=== PATIENT | female | born 1980 | race Caucasian/White ===

== ENCOUNTER → 2016-10-13 | Outpatient (CLI) | payer BC ==
--- NOTE | 2016-10-13 16:49 | DX ---
Chest, PA and Lateral History: Cough, immunosuppression due to rheumatoid arthritis Findings: Lungs are clear, without infiltrate (alveolar or interstitial) or consolidation. Heart size is normal. There is no adenopathy, cavitary lesion or mass . There is no pleural effusion. Bones are unremarkable for age. Impression: Normal. Results called to Dr. Tinoco as requested.
== END ==
LOC: BMCIMAGING 16:28
PROVIDERS: ATTEND Family Medicine
DX: R07.81 Pleurodynia (principal); R05 Cough

== ENCOUNTER → 2016-12-17 | Outpatient (CLI) | payer BC | LOC: FIMAGING 11:40 | PROVIDERS: ATTEND Obstetrics & Gynecology | DX: Z31.69 Encounter for other general counseling and advice on procreation (principal); M06.9 Rheumatoid arthritis, unspecified; E03.9 Hypothyroidism, unspecified ==

== ENCOUNTER 2017-10-01 05:27 | Inpatient (IN) | payer BC ==
--- NOTE | 2017-09-19 22:30 | GHP ---
[f rep st] PREOP HISTORY AND PHYSICAL DATE OF ADMISSION: 10/01/2017 IDENTIFYING DATA: The patient's surgery is planned for October 01, 2017 on the Obstetrics Service. PREOPERATIVE HISTORY: The patient is a 37-year-old, G3, P2, at 39 weeks gestation, who is presenting for a scheduled repeat section. She has a due date of 10/07/2017. The patient has had 2 prior sections, the 1st for breech, preeclampsia, and the 2nd was an elective repeat. The patient' s current has been symptomatically hard due to worsening hip discomfort, which has possibly been from worsening rheumatoid arthritis versus -related changes. The patient has been on Cimzia throughout the . The patient is also with a history of depression and anxiety and became more symptomatic during the with the worries about her chronic pain. She was initiated on Zoloft at 26 weeks gestation and has increased her dose through the , but feels this is managing her anxiety. The patient also has Karoline disease and has had some increase in her thyroid replacement in the . Upon presentation, the patient is having good movement, bag of water intact, no bleeding. The patient has been thoroughly counseled about the risks and benefits of a repeat and the consent form was signed. The patient declines tubal ligation or removal. CARE: The patient has been followed by [facility] since 8 weeks gestation. The patient had 1st trimester nausea that was controlled with Zoloft. She had discontinued her Wellbutrin in the month preceding conception and initially did well up to mid-. The patient initiated Zoloft at 26 weeks and has increased her dose twice, but feels this is keeping her in good control. The patient was found to have alpha-thalassemia trait, but her tested negative. The patient has been following up with her pipe finisher through and has gradually tried to spread out her Cimzia injections to reduce the potential for affect on immunity. The patient has been having progressive hip discomfort and has been working with physical therapy, as well as chiropractics, through the . The patient has occasionally used Flexeril for travel. The patient did have preeclampsia with her first, felt related to steroid use in the 1st trimester, and did not have trouble with her second during the . However, had a headache and slightly elevated blood pressures and was sent home on labetalol. This her blood pressures have been normal and baseline PIH testing was all negative. LABS: Maternal blood type shows O-positive with negative antibody screen. RPR nonreactive. Rubella non immune. Hepatitis B surface antigen negative. HIV negative. The standard genetics panel all negative except for possibly alpha-thalassemia trait. Baseline PIH labs normal with 24-hour protein 281. Initial TSH 1.9; however, check in July revealed 4.29 with improvement on August 19 of TSH 0.8. Urinalysis and culture negative. Pap smear negative. Gonorrhea and chlamydia negative. Verifi testing negative. GBS culture was positive. The patient's hematocrit showed anemia at the beginning of ; improved to 37% in mid-. PAST MEDICAL HISTORY: Rheumatoid arthritis, currently on Cimzia, and followed with a pipe finisher. History of hypothyroidism with Karloine disease. History of migraines in college. Depression and anxiety disorder ( discontinuing her Zoloft 1 month prior to ). PAST SURGICAL HISTORY: Odontectomy, sections x2 in 2011 and 2013. PAST OBSTETRIC HISTORY: In January 2012, a male delivered by section at 37 weeks at 6 pounds 4 ounces. The patient delivered early due to preeclampsia and was breech, dictating the delivery. Questionable chronic hypertension. In March 2014, another male at 7 pounds 5 ounces, delivered at 39 weeks by scheduled repeat electively. ALLERGIES: The patient has no known drug allergies. CURRENT MEDICATIONS: Cimzia injections q.2-3 weeks, levothyroxine at 150 mcg daily, Zoloft 75 mg daily. SOCIAL HISTORY: The patient is , lives with her and 2 sons. The patient is a nonsmoker. No alcohol or drug use. PHYSICAL EXAM: GENERAL: At the time of preop, the patient is a well-developed , well-nourished, overweight white female in discomfort with her hip pain, but no pains. VITAL SIGNS: The patient is clinically afebrile. Blood pressure 100/58. Urinalysis negative for protein and glucose. Weight 222 pounds. LUNGS: Clear to auscultation bilaterally. CARDIOVASCULAR: Regular rate and rhythm. ABDOMEN: Shows a fundal height of 36 cm. Normal heart tones in the 150s. PELVIS: Exam is deferred. EXTREMITIES: Mild peripheral edema. ASSESSMENT: Intrauterine at 39 weeks gestation for repeat section. Prior x2. Rheumatoid arthritis on Cimzia. Karoline hypothyroidism. History of anxiety, on Zoloft 75 mg. Rubella nonimmune. GBS positive. PLAN: Repeat planned for 10/01/2017. Patient declines tubal ligation. The patient will receive preoperative antibiotics and will have SCDs on for the surgery. /[id number]/MODL MTDD
[2017-10-01] MEDS ORDERED: CITRIC ACID/SODIUM CITRATE 30 ML UDCUP PO ONE (05:55)
[2017-10-01] MEDS ORDERED: ceFAZolin 2 GM/DEXTROSE 100 ML IV ONE (05:55)
[2017-10-01] MEDS ORDERED: LR 1,000 ML IV SCH (05:55)
[2017-10-01] MEDS ORDERED: LR 500 ML IV ONE (05:55)
[2017-10-01] MEDS ORDERED: ceFAZolin 2 GM/SWFI 2 GM/20 ML SYR IVP ONE (06:15)
[2017-10-01 06:17] LABS: PLATELET COUNT 224 10^3/uL (150-400)
[2017-10-01] MEDS ORDERED: AMMONIA AROMATIC 1 EACH AMP IH ONE (06:36)
[2017-10-01] MEDS ORDERED: OXYTOCIN 10 UNIT/ML VIAL ONE (06:37)
[2017-10-01] MEDS ORDERED: MISOPROSTOL 200 MCG TAB ONE (06:37)
--- NOTE | 2017-10-01 07:35 | PDANEPAE ---
ANE History of Present Illness 37 yo for repeat C/S ANE Past Medical History - Pulmonary History Hx Sleep Apnea: No Sleep Apnea Screening Result - Last Documented: Negative - Endocrine History Hx Diabetes: No - Other Health History Other Health History: RA, [place]imotos Thyroiditis ANE Review of Systems Review of systems is: negative Review of Systems: ANE Patient History - Allergies Allergies/Adverse Reactions: No Known Allergies Allergy (Verified 02/05/12 11:41) - Home Medications Home medications: home medication list seen and reviewed Home Medications: 1 tab PO DAILY 04/03/14 [Last Taken 04/02/14] Synthroid 150 mcg (RX) 150 mcg PO DAILY 04/03/14 [Last Taken 04/02/14] Vit D3/Folic Acid/B2/B6/B12 1 tab PO DAILY 04/03/14 [Last Taken 04/02/14] - NPO status NPO Status: no food or drink >8 hours NPO Since - Liquids (Date): 09/30/17 NPO Since - Liquids (Time): 20:00 NPO Since - Solids (Date): 09/30/17 NPO Since - Solids (Time): 20:00 - Anes Hx Anes Hx: no prior problems - Smoking Hx Smoking Status: Never smoked ANE Labs/Vital Signs - Labs Result Diagrams: 10/01/17 05:56 10/01/17 07:17 - Vital Signs Blood Pressure: 143/99 Heart Rate: 73 Respiratory Rate: 18 O2 Sat (%): 95 Height: 182.88 cm Weight: 99.79 kg ANE Physical Exam - Airway Mallampati Score: Class 1 Mouth exam: normal dental/mouth exam - Pulmonary Pulmonary: no respiratory distress, clear to auscultation - Cardiovascular Cardiovascular: regular rate and rhythym - ASA Status ASA Status: II ANE Anesthesia Plan Anesthesia Plan: spinal
[2017-10-01] MEDS ORDERED: morphINE PF 5 MG/10 ML INJ ONE (07:38)
--- NOTE | 2017-10-01 07:40 | PDHPUP ---
History & Physical Update H&P update statement: This history and physical update is based on an assessment of the patient which was completed after admission or registration (within 24 hours), but prior to the surgery/procedure. unchanged - pt anxious and b/p elevated, mild HAs this week - usually in evenings, mild nausea this am. PIH labs drawn and pnd. plts normal. GFM
[2017-10-01] MEDS ORDERED: NALOXONE HCL 0.4 MG/ML INJ IVP PRN ×2 (09:04→09:05)
[2017-10-01] MEDS ORDERED: MEPERIDINE 25 MG/ML SYR IVP PRN (09:04)
[2017-10-01] MEDS ORDERED: fentaNYL 100 MCG/2 ML INJ IVP PRN (09:04)
[2017-10-01] MEDS ORDERED: ONDANSETRON 4 MG/2 ML VIAL IVP PRN (09:05)
[2017-10-01] MEDS ORDERED: LACTULOSE 20 GM/30 ML UDCUP PO PRN (09:55)
[2017-10-01] MEDS ORDERED: MAGNESIUM HYDROXIDE 30 ML UDCUP PO PRN (09:55)
[2017-10-01] MEDS ORDERED: BISACODYL 10 MG SUPP PR PRN (09:55)
[2017-10-01] MEDS ORDERED: POLYETHYLENE GLYCOL 3350 17 GM PKT PO PRN (09:55)
[2017-10-01] MEDS ORDERED: MEASLES,MUMPS&RUBELLA VACC/PF 0.5 ML VIAL SC ONE ×3 (10:02→14:30)
--- NOTE | 2017-10-01 10:07 | OBDEL ---
Info Type: Repeat Presentation at Delivery: Vertex L&D Analgesia/Anesthesia Type: Spinal GBS+: Yes Intrapartum Medications: Discontinued Medications Generic Name Dose Route Start Last Admin Trade Name Reggie PRN Reason Stop Dose Admin Citric Acid/Sodium Citrate 30 ml 10/01/17 05:55 10/01/17 09:18 Bicitra PO 10/01/17 05:56 Not Given ONCALL ONE Cefazolin Sodium 2 gm in 20 mls @ 200 mls/hr 10/01/17 06:15 10/01/17 07:28 Cefazolin Syringe IVP 10/01/17 06:20 20 mls ONCE ONE Administration - Care Provider Food Service Manager/HEALTH BENEFITS SPECIALIST: Natalie Stephens - Hospital Course Intrapartum: 10/01/17 10:05 scheduled RCS Vaginal Delivery - Labor and Delivery Rupture of Membranes Date: 10/01/17 Rupture of Membranes Time: 08:20 Placenta Delivery Date: 10/01/17 Placenta Delivery Time: 08:23 Vaginal Sponge Count Correct: Yes (c/s) Vaginal Needle Count Correct: Yes (c/s) Operative Report - Delivery Pre-op Diagnoses: IUP at 39 wks, scheduled PCS x2, Rheumatoid arthritis, anxiety Post-op Diagnoses: same, delivered History of Prior Section: Yes Number of Prior Sections: 2 Nulliparous Prior to Delivery: No Indications for Prior Section: Breech (with first), Elective/Repeat ( with second) Indications for Current Section: Elective/Repeat Procedure: Scheduled, Low Transverse Surgeon: April Cedeno Coldfusion: Christiana Flores Anesthesiologist: Rich Chairez Warm Complications: Other (Specify) (extension of incision on right angle inferiorly) Findings: uterus, tubes and ovaries normal. little scar on visceral peritoneum, thin RANDALL and after hysterotomy the right angle had dissected inferiorly and was very thin. bleeding inferiorly that required additional stitching for hemostasis. stitches were carefully taken on lateral edge of uterus. bladder was low away from dissection. clear UOP throughout surgery and after. Double layer closure on hysterotomy. NC x1 noted . small superficial lac on baby's nose upon hysterotomy, but very superficial and stopped oozing within minutes. EBL: 1000 [place] Data MONICA: 10/07/17 Gestational Age: 39 week(s) and 1 day(s) Watson Delivery Date: 10/01/17 Delivery Time: 08:21 Sex of Infant: Female Score (1 Min): 8 Score (5 Min): 9 ICD10 Worksheet Patient Problems: Problems Problem Status Onset delivery delivered Acute
[2017-10-01] MEDS: KETOROLAC 30 MG/1 ML SDV IVP SCH ×2 (12:56→18:15)
[2017-10-01] MEDS: SENNOSIDES/DOCUSATE SODIUM TAB PO SCH (22:46)
[2017-10-01] MEDS: SERTRALINE HCL 50 MG TAB PO SCH (22:46)
[2017-10-01] MEDS: LEVOTHYROXINE 150 MCG TAB PO SCH (22:46)
[2017-10-02] MEDS: KETOROLAC 30 MG/1 ML SDV IVP SCH ×2 (00:32→06:49)
--- NOTE | 2017-10-02 08:46 | OBPP ---
Progress Note Assessment/Plan: Assessment: POD #1 Low transverse section Stable afebrile Plan: 10/02/17 08:44 Continue routine post Operative care Subjective/ Course: 10/02/17 08:45 Doing well tolerating diet, ambulating and voiding. Objective: 10/02/17 06:45 10/01/17 07:17 Patient ABO/Rh O POSITIVE 10/01/17 05:56 Uric Acid 4.6 mg/dL (2.5-6.8) 10/01/17 07:17 Total Bilirubin < 0.1 mg/dL (0.1-1.4) L 10/01/17 07:17 Conjugated Bilirubin < 0.1 mg/dL (0.0-0.5) 10/01/17 07:17 Unconjugated Bilirubin 0.0 mg/dL (0.0-1.1) 10/01/17 07:17 AST 17 IU/L (14-46) 10/01/17 07:17 ALT 24 IU/L (9-52) 10/01/17 07:17 Lactate Dehydrogenase 328 IU/L (313-618) 10/01/17 07:17 Temp Pulse Resp BP Pulse Ox 36.3 C 79 18 115/73 94 10/01/17 22:00 10/02/17 02:30 10/02/17 02:30 10/01/17 22:00 10/02/17 02:30 Uterine Position/Fundal Height: Umbilicus -2 (Dressing clean dry and intact) Uterine Tone: Firm Physical Exam - Physical Exam Neck: non-tender, full range of motion, supple Respiratory: chest non-tender, lungs clear, normal breath sounds Cardiac/Chest: normal peripheral pulses, regular rate, rhythm Extremities: normal range of motion, non-tender Skin: normal color, warm/dry Neuro/Psych: no motor/sensory deficits, alert, normal mood/affect, oriented x 3
[2017-10-02] MEDS: SENNOSIDES/DOCUSATE SODIUM TAB PO SCH ×2 (09:06→22:08)
[2017-10-02] MEDS: IBUPROFEN 600 MG TAB PO PRN ×2 (12:22→18:34)
[2017-10-02] MEDS: HYDROCODONE/APAP 5/325 TAB PO PRN ×2 (15:27→19:41)
[2017-10-02] MEDS: LEVOTHYROXINE 150 MCG TAB PO SCH (22:07)
[2017-10-02] MEDS: SERTRALINE HCL 50 MG TAB PO SCH (22:09)
[2017-10-03] MEDS: HYDROCODONE/APAP 5/325 TAB PO PRN ×4 (00:03→13:13)
[2017-10-03] MEDS: IBUPROFEN 600 MG TAB PO PRN ×3 (00:03→12:11)
--- NOTE | 2017-10-03 07:25 | OBPP ---
Progress Note Assessment/Plan: Assessment: POD #2 Low transverse section Stable afebrile Plan: 10/02/17 08:44 Continue routine post Operative care 10/03/17 07:17 10/03/17 07:52 Discharge home Follow up at 2, 4 and 6 weeks sinus congestion saline flush, ibuprofen worsening symptoms see Primary care Subjective/ Course: 10/02/17 08:45 Doing well tolerating diet, ambulating and voiding. 10/03/17 07:51 Ambulating, breast feeding tolerating diet, voiding and flatus. Sinus congestion but afebrile Wants to go home Objective: 10/02/17 06:45 10/01/17 07:17 Patient ABO/Rh O POSITIVE 10/01/17 05:56 Uric Acid 4.6 mg/dL (2.5-6.8) 10/01/17 07:17 Total Bilirubin < 0.1 mg/dL (0.1-1.4) L 10/01/17 07:17 Conjugated Bilirubin < 0.1 mg/dL (0.0-0.5) 10/01/17 07:17 Unconjugated Bilirubin 0.0 mg/dL (0.0-1.1) 10/01/17 07:17 AST 17 IU/L (14-46) 10/01/17 07:17 ALT 24 IU/L (9-52) 10/01/17 07:17 Lactate Dehydrogenase 328 IU/L (313-618) 10/01/17 07:17 Temp Pulse Resp BP Pulse Ox 36.6 C 70 18 130/86 H 97 10/02/17 20:00 10/02/17 20:00 10/02/17 20:00 10/02/17 20:00 10/02/17 20:00 Uterine Position/Fundal Height: Umbilicus -2 (Incision clean dry and intact) Uterine Tone: Firm Physical Exam - Physical Exam Neck: non-tender, full range of motion, supple Respiratory: chest non-tender, lungs clear, normal breath sounds Cardiac/Chest: normal peripheral pulses, regular rate, rhythm Abdomen: normal bowel sounds, non-tender, flatus Extremities: normal range of motion, non-tender Skin: normal color, warm/dry Neuro/Psych: no motor/sensory deficits, alert, normal mood/affect, oriented x 3
--- NOTE | 2017-10-03 07:57 | OBGCSDC ---
General Delivery Information - General Info : 3 Para: 3 Abortions: 0 Type: Repeat L&D Analgesia/Anesthesia Type: Spinal Admission Date: 10/01/17 Labs: Patient ABO/Rh O POSITIVE 10/01/17 05:56 Hct 36.1 % (38.0-47.0) L 10/02/17 06:45 - Hospital Course Intrapartum: 10/01/17 10:05 scheduled RCS : 10/02/17 08:45 Doing well tolerating diet, ambulating and voiding. 10/03/17 07:51 Ambulating, breast feeding tolerating diet, voiding and flatus. Sinus congestion but afebrile Wants to go home - Delivery Providers Surgeon: April Cedeno Firestopper Technician: Christiana Flores Anesthesiologist: Rich Chairez Warm - Delivery Number of Prior Sections: 2 Indications for Current Section: Elective/Repeat Surgical Procedures: Scheduled, Low Transverse Intra-op Complications: Other (Specify) (extension of incision on right angle inferiorly) EBL: 1000 [place] Data MONICA: 10/07/17 Gestational Age: 39 week(s) and 3 day(s) Watson Delivery Date: 10/01/17 Delivery Time: 08:21 Sex of Infant: Female Score (1 Min): 8 Score (5 Min): 9 Discharge Information - Discharge Information Prescriptions: Hydrocodone/APAP 5/325 [[place] 5/325 (*)] 1 - 2 tab PO Q4HRS PRN #30 tab PRN Reason: Pain, Moderate Ibuprofen [Motrin (*)] 600 mg PO Q6HRS PRN #30 tab PRN Reason: Inflammation Docusate Sodium [Colace 100 MG (*)] 100 mg PO BID #30 cap Condition: Good Instruction/Follow Up: Two Weeks (follow up 2 weeks for incision check 4 wellness 6 weeks check)
[2017-10-03] MEDS: SENNOSIDES/DOCUSATE SODIUM TAB PO SCH (09:09)
[2017-10-03 12:03] VITALS: BP 136/84; PULSE 75; RESP 16; TEMP 97.4; O2SAT 95
== END 2017-10-03 14:00 | disposition home or self-care (01) | DRG 766 ==
LOC: FLD 05:27 → FOB 11:37
PROVIDERS: ADMIT Obstetrics & Gynecology; ATTEND Obstetrics & Gynecology
PROC: 10D00Z1 Extraction of Products of Conception, Low, Open Approach (ICD-10-PCS; principal; 2017-10-01)
DX: O34.211 Maternal care for low transverse scar from previous cesarean delivery (principal); O26.893 Other specified pregnancy related conditions, third trimester; O99.284 Endocrine, nutritional and metabolic diseases complicating childbirth; O99.824 Streptococcus B carrier state complicating childbirth; M06.9 Rheumatoid arthritis, unspecified; E03.9 Hypothyroidism, unspecified; F32.9 Major depressive disorder, single episode, unspecified; F41.9 Anxiety disorder, unspecified; Z37.0 Single live birth; Z3A.39 39 weeks gestation of pregnancy; Z23 Encounter for immunization
CPT/HCPCS: J0690; J1200; J1885; J2274

== ENCOUNTER 2017-10-11 12:04 | Inpatient (IN) | payer BC ==
[2017-10-11 12:20] LABS: PLATELET COUNT 370 10^3/uL (150-400)
[2017-10-11] MEDS ORDERED: CALCIUM GLUC 10% 1 GM/10 ML VIAL IVP PRN (13:36)
[2017-10-11] MEDS ORDERED: MAGNESIUM SULF 4 GM/WATER 100 ML IV ONE (13:36)
--- NOTE | 2017-10-11 13:42 | PDGENHP ---
History and Physical - Chief Complaint Post- hypertension - History of Present Illness Nicole is a 37 yo now , POD10 s/p scheduled RLTCS on 10/01/17 who presented to clinic this morning for BP check and was found to have severe range BPs 160/ 92. This past weekend she had developed a new PÉREZ that responded somewhat to Tylenol - took a few BPs on her home cuff that were high mild range or severe. She denies any other new or evolving s/sx of preeclampsia at this time. No BP issues at the end of her or in the hospital after delivery prior to discharge. She does have a h/o PIH with prior pregnancies - she was induced and placed on antihypertensives, but never needed magnesium in the past. History Information - Allergies/Home Medication List Allergies/Adverse Reactions: No Known Allergies Allergy (Verified 02/05/12 11:41) Home Medications: 1 tab PO DAILY 04/03/14 [Last Taken 10/10/17 17:00] Synthroid 150 mcg (RX) 150 mcg PO DAILY 04/03/14 [Last Taken 10/10/17 17:00] Amoxicillin/Clavulanate Pot [Augmentin 875 MG TAB (*)] 875 mg PO BID 10/11/17 [ Last Taken 10/11/17 09:00] Certolizumab Pegol [CIMZIA] 400 mg SQ 10/11/17 [Last Taken 09/22/17] Sertraline HCl [Zoloft 50mg (*)] 75 mg PO DAILY 10/11/17 [Last Taken 10/10/17 17 :00] I have personally reviewed and updated: family history Past Medical History: Hypothyroidism on Levo, RA on anti-TNF, Depression/ anxiety on Zoloft - Past Medical History arthritis (RA), psychiatric history (anxiety/depression) - Surgical History Additional surgical history: H/o x 3 (including most recent) - Social History Smoking Status: Never smoked Review of Systems Review of Systems: ROS: 10pt was reviewed & negative except for what was stated in HPI & below Physical Exam Physical Exam: Temp Pulse Resp BP Pulse Ox 60 181/92 H 10/11/17 15:49 10/11/17 15:49 Constitutional: no apparent distress Eyes: PERRL Cardiovascular: regular rate and rhythym, no murmur, rub, or gallop, edema ( pedal +1 no pitting) Respiratory: no respiratory distress, clear to auscultation Skin: warm Neurologic: AAOx3, CN II-XII Intact, other (DTRs UE/LE 1+ 1 beat clonus bilat) Psychiatric: interacting appropriately, not anxious Lab Data & Imaging Review 10/11/17 12:08 10/11/17 12:08 WBC 9.14 10^3/uL (3.80-9.50) 10/11/17 12:08 RBC 4.54 10^6/uL (4.18-5.33) 10/11/17 12:08 Hgb 14.7 g/dL (12.6-16.3) 10/11/17 12:08 Hct 42.2 % (38.0-47.0) 10/11/17 12:08 MCV 93.0 fL (81.5-99.8) 10/11/17 12:08 MCH 32.4 pg (27.9-34.1) 10/11/17 12:08 MCHC 34.8 g/dL (32.4-36.7) 10/11/17 12:08 RDW 12.1 % (11.5-15.2) 10/11/17 12:08 Plt Count 370 10^3/uL (150-400) 10/11/17 12:08 MPV 10.1 fL (8.7-11.7) 10/11/17 12:08 Neut % (Auto) 56.0 % (39.3-74.2) 10/11/17 12:08 Lymph % (Auto) 33.2 % (15.0-45.0) 10/11/17 12:08 [place] % (Auto) 8.6 % (4.5-13.0) 10/11/17 12:08 Eos % (Auto) 1.4 % (0.6-7.6) 10/11/17 12:08 Baso % (Auto) 0.4 % (0.3-1.7) 10/11/17 12:08 Nucleat RBC Rel Count 0.0 % (0.0-0.2) 10/11/17 12:08 Absolute Neuts (auto) 5.11 10^3/uL (1.70-6.50) 10/11/17 12:08 Absolute Lymphs (auto) 3.03 10^3/uL (1.00-3.00) H 10/11/17 12:08 Absolute Monos (auto) 0.79 10^3/uL (0.30-0.80) 10/11/17 12:08 Absolute Eos (auto) 0.13 10^3/uL (0.03-0.40) 10/11/17 12:08 Absolute Basos (auto) 0.04 10^3/uL (0.02-0.10) 10/11/17 12:08 Absolute Nucleated RBC 0.00 10^3/uL (0-0.01) 10/11/17 12:08 Immature Gran % 0.4 % (0.0-1.1) 10/11/17 12:08 Immature Gran # 0.04 10^3/uL (0.00-0.10) 10/11/17 12:08 BUN 14 mg/dL (7-23) 10/11/17 12:08 Creatinine 0.8 mg/dL (0.6-1.0) 10/11/17 12:08 Estimated GFR > 60 10/11/17 12:08 Uric Acid 6.6 mg/dL (2.5-6.8) 10/11/17 12:08 Total Bilirubin 0.3 mg/dL (0.1-1.4) 10/11/17 12:08 Conjugated Bilirubin 0.2 mg/dL (0.0-0.5) 10/11/17 12:08 Unconjugated Bilirubin 0.1 mg/dL (0.0-1.1) 10/11/17 12:08 AST 30 IU/L (14-46) 10/11/17 12:08 ALT 53 IU/L (9-52) H 10/11/17 12:08 Lactate Dehydrogenase 522 IU/L (313-618) 10/11/17 12:08 Assessment & Plan Assessment: POD10 s/p scheduled RLTCS - now HD1 after presenting with post- preeclampsia. Plan: PIH: * Received IV labetalol 20mg IV x 1, then started Procardia 30XL daily. * Labs overall normal as above, no protein in her urine, sx only mild PÉREZ which resolved with Norman. * Magnesium 4g bolus, 2g/hr infusion, will plan 24 hrs then off if BPs under good control. * Will repeat labs in the AM. * Can eat general diet once BPs have stabilized, can use bedside commode in lieu of [place]. Routine Cares: * Continue home Zoloft, Levo, and Cimzia as needed. * Norman PRN for PÉREZ pain.
[2017-10-11] MEDS: MAGNESIUM SULFATE 20 GM in D5W 500 ML IV SCH (14:13)
[2017-10-11] MEDS: NIFEdipine ER 30 MG TAB PO SCH (14:14)
[2017-10-11] MEDS: HYDROCODONE/APAP 5/325 TAB PO PRN ×2 (14:14→19:39)
[2017-10-11] MEDS ORDERED: LR 1,000 ML IV PRN (15:08)
[2017-10-11] MEDS ORDERED: LABETALOL HCL 5 MG/ML 20 ML MDV ONE (15:38)
[2017-10-11] MEDS ORDERED: LABETALOL HCL 5 MG/ML 20 ML MDV IVP ONE (16:00)
[2017-10-11 16:35] VITALS: PULSE 60
[2017-10-11] MEDS ORDERED: AMOXICILLIN/CLAVULANATE POT 875/125 MG TAB PO SCH (21:00)
[2017-10-11] MEDS: LEVOTHYROXINE 150 MCG TAB PO SCH (22:09)
[2017-10-11] MEDS: SERTRALINE HCL 50 MG TAB PO SCH (22:09)
[2017-10-11] MEDS: PRENATAL VIT 1 EACH TAB PO SCH (22:10)
[2017-10-11] MEDS: DOCUSATE SODIUM 100 MG CAP PO SCH (22:10)
[2017-10-12] MEDS: HYDROCODONE/APAP 5/325 TAB PO PRN ×3 (01:13→20:21)
[2017-10-12] MEDS: MAGNESIUM SULFATE 20 GM in D5W 500 ML IV SCH ×2 (01:53→12:09)
[2017-10-12] MEDS ORDERED: BISACODYL 10 MG SUPP PR PRN (07:40)
[2017-10-12] MEDS ORDERED: MAGNESIUM HYDROXIDE 30 ML UDCUP PO PRN (07:40)
[2017-10-12] MEDS ORDERED: LACTULOSE 20 GM/30 ML UDCUP PO PRN (07:40)
[2017-10-12] MEDS ORDERED: POLYETHYLENE GLYCOL 3350 17 GM PKT PO PRN (07:40)
[2017-10-12] MEDS ORDERED: ACETAMINOPHEN 500 MG TAB PO PRN (07:41)
--- NOTE | 2017-10-12 07:44 | OBPP ---
Progress Note Assessment/Plan: Assessment: 37 y/o s/p RLTCS POD #11 with post- preeclampsia Plan: Continue MgSO4 x 24 hours, will discontinue at 1415 this afternoon BPs stable, currently on Procardia XL-will hold 0900 dose since BPs low Repeat PIH labs pending this am Pt is symptomatic with a PÉREZ this am, Tylenol prn Will add SCDs while in bed Possible d/c later today or in am 10/12/17 07:53 Subjective/ Course: 10/12/17 07:49 Pt seen and examined. She is c/o PÉREZ this am, 01/13. Had [place] x 1 last night. Also has a sinus infection, but PÉREZ is occipital. Denies any visual changes or RUQ pain. Denies any f/c/n/v/CP or SOB. Minimal pain, discomfort with c/s, incision. Mild lochia. BF without difficulty. Voiding without difficulty. No BM x 2 days. 10/12/17 07:53 Objective: 10/11/17 12:08 Uric Acid 6.6 mg/dL (2.5-6.8) 10/11/17 12:08 Total Bilirubin 0.3 mg/dL (0.1-1.4) 10/11/17 12:08 Conjugated Bilirubin 0.2 mg/dL (0.0-0.5) 10/11/17 12:08 Unconjugated Bilirubin 0.1 mg/dL (0.0-1.1) 10/11/17 12:08 AST 30 IU/L (14-46) 10/11/17 12:08 ALT 53 IU/L (9-52) H 10/11/17 12:08 Lactate Dehydrogenase 522 IU/L (313-618) 10/11/17 12:08 Temp Pulse Resp BP Pulse Ox 60 181/92 H 10/11/17 15:49 10/11/17 15:49 Uterine Position/Fundal Height: Umbilicus -2 Uterine Tone: Firm Physical Exam - Physical Exam Respiratory: lungs clear, normal breath sounds Cardiac/Chest: regular rate, rhythm Abdomen: normal bowel sounds, non-tender, soft, flatus (+), incision (C/D/I) Extremities: non-tender, normal inspection DTR- Lower Extremities: Plantar (R): 1+, Plantar (L): 1+ Skin: normal color, warm/dry Neuro/Psych: alert, normal mood/affect, oriented x 3
[2017-10-12] MEDS: DOCUSATE SODIUM 100 MG CAP PO SCH ×2 (08:36→20:03)
[2017-10-12] MEDS: AMOXICILLIN/CLAVULANATE POT 875/125 MG TAB PO SCH ×2 (08:37→20:04)
[2017-10-12] MEDS ORDERED: SERTRALINE HCL 50 MG TAB PO SCH (09:00)
[2017-10-12 11:03] VITALS: BP 143/91
[2017-10-12] MEDS: NIFEdipine ER 30 MG TAB PO SCH (11:03)
[2017-10-12] MEDS: SENNOSIDES/DOCUSATE SODIUM TAB PO SCH ×2 (18:49→23:19)
[2017-10-12] MEDS: PRENATAL VIT 1 EACH TAB PO SCH (20:04)
[2017-10-12] MEDS: SERTRALINE HCL 50 MG TAB PO SCH (20:06)
[2017-10-12] MEDS: LEVOTHYROXINE 150 MCG TAB PO SCH (20:07)
[2017-10-13] MEDS: SENNOSIDES/DOCUSATE SODIUM TAB PO SCH (08:36)
[2017-10-13] MEDS: AMOXICILLIN/CLAVULANATE POT 875/125 MG TAB PO SCH (08:36)
[2017-10-13] MEDS: NIFEdipine ER 30 MG TAB PO SCH (08:36)
--- NOTE | 2017-10-13 10:23 | OBPP ---
Progress Note Assessment/Plan: Assessment: 37 y/o s/p MgSo4 secondary to post pre eclampsia. Plan: Her BP have improved on Po Procardia XL 30mg QD and she feels generally well. She will d/c home today to monitor her BP @ home and follow-up @ [facility] tomorrow with a BP check. 10/13/17 10:21 Subjective/ Course: 10/12/17 07:49 Pt seen and examined. She is c/o PÉREZ this am, 01/13. Had [place] x 1 last night. Also has a sinus infection, but PÉREZ is occipital. Denies any visual changes or RUQ pain. Denies any f/c/n/v/CP or SOB. Minimal pain, discomfort with c/s, incision. Mild lochia. BF without difficulty. Voiding without difficulty. No BM x 2 days. 10/12/17 07:53 10/13/17 10:19 Pt is feeling much better today. She reports her PÉREZ has resolved, she denies visual changes or pain. She is ambulating and voiding but does feel constipated and she is working on that. Baby is doing well and she is ready to d/c home. Objective: 10/11/17 12:08 10/12/17 06:30 Uric Acid 6.9 mg/dL (2.5-6.8) H 10/12/17 06:30 Total Bilirubin 0.3 mg/dL (0.1-1.4) 10/11/17 12:08 Conjugated Bilirubin 0.2 mg/dL (0.0-0.5) 10/11/17 12:08 Unconjugated Bilirubin 0.1 mg/dL (0.0-1.1) 10/11/17 12:08 AST 32 IU/L (14-46) 10/12/17 06:30 ALT 56 IU/L (9-52) H 10/12/17 06:30 Lactate Dehydrogenase 507 IU/L (313-618) 10/12/17 06:30 Temp Pulse Resp BP Pulse Ox 60 143/91 H 10/11/17 15:49 10/12/17 11:03 Uterine Position/Fundal Height: Umbilicus -3 Uterine Tone: Firm Physical Exam - Physical Exam General Appearance: WD/WN, alert, no apparent distress Neck: non-tender, full range of motion, supple Respiratory: chest non-tender, lungs clear, normal breath sounds Cardiac/Chest: regular rate, rhythm Abdomen: normal bowel sounds, incision (c/d/i) Extremities: swelling (no), Rehan's sign (neg)
== END 2017-10-13 12:40 | disposition home or self-care (01) | DRG 776 ==
LOC: FLD 12:04 → OBSVTOIN 15:10
PROVIDERS: ADMIT Obstetrics & Gynecology; ATTEND Obstetrics & Gynecology
DX: O14.95 Unspecified pre-eclampsia, complicating the puerperium (principal); O99.53 Diseases of the respiratory system complicating the puerperium; J06.9 Acute upper respiratory infection, unspecified; J32.9 Chronic sinusitis, unspecified
CPT/HCPCS: J0610; J3475

== ENCOUNTER → 2018-06-01 | Outpatient (CLI) | payer BC | LOC: FIMAGING 09:03 | PROVIDERS: ATTEND Obstetrics & Gynecology | DX: N64.4 Mastodynia (principal) ==

== ENCOUNTER → 2018-07-15 | Outpatient (CLI) | payer BC | LOC: FIMAGING 13:27 | PROVIDERS: ATTEND Family Medicine | DX: M25.571 Pain in right ankle and joints of right foot (principal) ==

== ENCOUNTER → 2018-08-10 | Outpatient (CLI) | payer OTHER | LOC: BMCIMAGING 09:49 | PROVIDERS: ATTEND Family Medicine | DX: Z13.828 Encounter for screening for other musculoskeletal disorder (principal) ==